=== PATIENT | female | born 1960 | race Caucasian/White ===

== ENCOUNTER 2023-11-23 20:33 | Emergency (ER) | payer OTHER, SELFPAY ==
[2023-11-23 20:45] VITALS: BP 133/100; PULSE 97; RESP 20; TEMP 36; O2SAT 98; BMI 31.9
--- NOTE | 2023-11-23 21:33 | ED.WOUNDLAC ---
HPI - Wound/Laceration General Chief Complaint: Wound/Laceration Stated Complaint: left index finger laceration Related Data Allergies Allergy/AdvReac Type Severity Reaction Status Date / Time Sulfa (Sulfonamide Allergy Rash Verified 11/24/23 10:38 Antibiotics) sulfamethoxazole Allergy Rash Verified 11/24/23 10:38 [From Bactrim] trimethoprim [From Bactrim] Allergy Rash Verified 11/24/23 10:38 [facility] Social History Social History Alcohol intake: never Smoked in Last 30 Days: No Use of substances other than those prescribed or required for medical reasons: No Advance Directives: No Advance Directives Information Provided: No Do you have a plan to hurt others: No Plan Physical Exam Vital Signs: Vital Signs: Last Vital Signs Temp 96.8 F 11/23/23 20:45 Pulse 97 11/23/23 20:45 Resp 20 11/23/23 20:45 BP 133/100 H 11/23/23 20:45 Pulse Ox 98 11/23/23 20:45 O2 Del Method Room Air 11/23/23 20:45 BMI result Body Mass Index 31.9 Course Course Course Narrative: This is an RME: Additional HPI, ROS, PE not included below will be deferred to primary provider. RME assessment and note performed by: Alison Ruvalcaba PA-C This is a 62-year-old female who presents to the emergency department with complaints of laceration to her index finger after slicing bread. Today with her tetanus. Wound is still oozing, may need suture repair. Further ER evaluation needed. Reevaluation(s) Reevaluation #1: Patient left without completing treatment. Discharge Plan Discharge Clinical Impression: Laceration Patient Disposition: Left W/O Completing Treatment Discharge Date/Time: 11/24/23 00:43
--- NOTE | 2023-11-24 00:42 | PC.NURSE ---
Pt not present in [facility] when called for reeval.
== END 2023-11-24 00:43 | disposition left against medical advice (07) ==
PROVIDERS: Emergency Provider Emergency Medicine; PCP Internal Medicine
DX: S61.211A Laceration without foreign body of left index finger without damage to nail, initial encounter (principal); W26.0XXA Contact with knife, initial encounter; Y93.9 Activity, unspecified; Y92.9 Unspecified place or not applicable; Y99.8 Other external cause status
CPT/HCPCS: 99281

== ENCOUNTER 2023-11-24 10:30 | Emergency (ER) | payer OTHER, SELFPAY ==
[2023-11-24 10:35] VITALS: BP 195/98; PULSE 94; RESP 16; TEMP 36.1; O2SAT 99; BMI 31.9
--- NOTE | 2023-11-24 10:38 | ED_ITS ---
HPI - Skin/Abscess/Foreign Bdy General Chief complaint: Wound/Laceration Stated complaint: l index finger laceration Time Seen by Provider: 11/24/23 10:38 Source: patient Mode of arrival: ambulatory Limitations: no limitations History of Present Illness HPI narrative: patient is a 62-year-old female presents emergency department for evaluation of a laceration to the radial aspect of the distal tip of the left 2nd digit. Reports that she was cutting bread for dinner last night when she sustained an accidental avulsion from a serrated bread knife. She tried [id number] clot from pharmacy which resolved the bleeding over night but when she removed it this morning it began bleeding again. She denies denies any coagulation disorders. Reports her tetanus vaccination is up-to-date Related Data Allergies Allergy/AdvReac Type Severity Reaction Status Date / Time Sulfa (Sulfonamide Allergy Rash Verified 11/24/23 10:38 Antibiotics) sulfamethoxazole Allergy Rash Verified 11/24/23 10:38 [From Bactrim] trimethoprim [From Bactrim] Allergy Rash Verified 11/24/23 10:38 Review of Systems Review of Systems: Yes all other systems are reviewed and are negative [facility] Past Medical History Attestation statement: The following information was validated with the patient. Source: old records reviewed Social History Social History Alcohol intake: never Smoked in Last 30 Days: No Use of substances other than those prescribed or required for medical reasons: No Advance Directives: No Advance Directives Information Provided: No Do you have a plan to hurt others: No Plan Physical Exam Vital Signs: Vital Signs: Last Vital Signs Temp 96.9 F 11/24/23 10:35 Pulse 94 11/24/23 10:35 Resp 16 11/24/23 10:35 BP 195/98 H 11/24/23 10:35 Pulse Ox 99 11/24/23 10:35 BMI result Body Mass Index 31.9 Appearance: Alert.?Oriented to person, place and time. No acute distress.?Normal affect. Neck: Normal inspection.? Neck supple.?? CVS: Heart sounds normal. Normal heart rate and rhythm.? Pulses normal.?? Respiratory: No respiratory distress.? Lung sounds clear to auscultation bilaterally?? Skin: Skin warm and dry.? Normal skin color.? avulsion to the left 2nd digit distal tip radial aspect with active bleeding. Full range of motion to the digit Neuro: Moves all extremities spontaneously. Sensation intact bilaterally. Ambulates with normal steady gait. Course Reevaluation(s) Reevaluation #1: unable to achieve hemostasis with TXA soaked gauze. Surgicel was applied with hemostasis. Clean dry dressing applied. Discussed removal in approximately 1 week, soaking in water and/or hydrogen peroxide, should she have any the bleed that is uncontrollable she may come to emergency department. 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 Stable for discharge Medications Administered Discontinued Medications Generic Name Dose Route Start Last Admin Trade Name Freq PRN Reason Stop Dose Admin Tranexamic Acid 500 mg 11/24/23 11:00 11/24/23 11:16 Tranexamic Acid 1,000 Mg/10 Ml Vial IRRIGATION 11/24/23 11:01 500 mg ONCE ONE Administration Medical Decision Making Medical Decision Making MDM Narrative: patient is a 62-year-old female presenting to emergency department for evaluation of accidental avulsion to the right 2nd digit as per HPI physical exam portion of this note. Tetanus vaccination is up-to-date. Bleeding uncontrolled after removal of bandage from yesterday night. Extremity is neurovascularly intact distally full range of motion to the digit. Differential Diagnosis Differential Diagnoses: The differential diagnosis associated with the presentation includes ( Avulsion, uncontrolled bleeding, neurovascular compromise. Suspect unlikely to retained foreign body. No evidence of tendon involvement) Tests considered The following testing was considered but not selected: XR deferred, suspect unlikely to have retained foreign body, full range of motion do not suspect acute fracture Prescription Management I considered prescription management with: Pain Medication ( acetaminophen/ibuprofen) Discharge Plan Discharge Clinical Impression: Avulsion of skin Patient Disposition: Home, Self-Care Additional Instructions: as discussed, leave the dressing in place for the next 24 hours. You may then apply a bandage over it for coverage. In 1 week if it does not fall off its own you may soak it in warm water with a little bit of hydrogen peroxide for removal. Monitor for signs of infection. Follow-up with primary care provider as needed Referrals: Hanny Joe MD [Primary Care Provider] - Print Language: Irish
[2023-11-24] MEDS: Tranexamic Acid 1,000 MG/10 ML VIAL 500 MG IRRIGATION (11:16)
[2023-11-24 12:35] VITALS: BP 169/90; PULSE 79; RESP 16; TEMP 36.4; O2SAT 98
[2023-11-24 12:36] VITALS: BP 169/90; PULSE 79; RESP 16; TEMP 36.4; O2SAT 98
== END 2023-11-24 12:40 | disposition home or self-care (01) ==
PROVIDERS: Emergency Provider Emergency Medicine; PCP Internal Medicine
DX: S61.211A Laceration without foreign body of left index finger without damage to nail, initial encounter (principal); M79.645 Pain in left finger(s); W26.0XXA Contact with knife, initial encounter; Y93.G3 Activity, cooking and baking; Y92.000 Kitchen of unspecified non-institutional (private) residence as the place of occurrence of the external cause; Y99.8 Other external cause status
CPT/HCPCS: 96360; 99284